=== PATIENT | male | born 1960 | race Caucasian/White ===

== ENCOUNTER 2019-07-16 08:51 | Emergency (ER) | payer MEDICAID ==
[~2019-07-16] VITALS: Ht 188 cm; Wt 133.4 kg
[2019-07-16] MEDS ORDERED: KETOROLAC TROMETH 60MG/2ML VIAL IM ONE (12:30)
[2019-07-16 12:37] VITALS: BP 117/89
== END 2019-07-16 12:42 | disposition home or self-care (01) ==
LOC: ER 08:51
DX: M54.16 Radiculopathy, lumbar region (principal); G89.29 Other chronic pain
CPT/HCPCS: 93971; 96372; 99284; J1885